=== PATIENT | female | born 1965 | race Caucasian/White ===

== ENCOUNTER 2020-08-01 06:12 | Day surgery (SDC) | payer OTHER ==
[~2020-08-01] VITALS: Ht 175.3 cm; Wt 120.4 kg
[~2020-08-01 06:12] MED LIST: ACULAR5 ML; AMLO5 PO; ATEN100 PO; Aspirin EC81 MG PO; BASAGLAR K100 UNIT/8 SC; CHLO25B PO; LOSARTAN POTAS100 M1 PO; NOVOLOG FL100 UNIT/3 SC; OMEP20ER PO; PRAV20 PO
[2020-08-01] MEDS ORDERED: Cetirizine HCl10 MG PO (06:33)
--- NOTE | 2020-08-01 07:23 | NUR ---
08/01/20 0723 Violet Ni PROCEDURE TO BE RESCHEDULED DUE TO HYPERTENSION. ANESTHESIA STS UNSAFE TO PROCEED WITH BLOOD PRESSURES THAT HIGH. PT VERBALIZES UNDERSTANDING AND STS SHE WILL FOLLOW-UP WITH HER PRIMARY CARE PHYSICIAN. PT OUT AT 0714.
[2020-08-30] MEDS ORDERED: METFORMIN ER1000 M2 PO (08:40)
== END 2020-08-01 07:14 | disposition home or self-care (01) ==
LOC: ORSCSDS 06:12
DX: H25.12 Age-related nuclear cataract, left eye (principal); Z53.9 Procedure and treatment not carried out, unspecified reason
CPT/HCPCS: 82947; A9270; J2001; J3301; J7040

== ENCOUNTER 2020-09-05 08:43 | Day surgery (SDC) | payer OTHER ==
[~2020-09-05] VITALS: Ht 177.8 cm; Wt 119.4 kg
[~2020-09-05 08:43] MED LIST changes: +Cetirizine HCl10 MG PO; +METFORMIN ER1000 M2 PO
--- NOTE | 2020-09-05 08:59 | NUR ---
09/05/20 0859 Madelaine Mcneill CHARTED BY [facility] 0857 TETRACAINE PLACED IN LT EYE PER DR ORDERS. 0858 PLEDGET PLACED IN LT EYE PER DR ORDERS.
--- NOTE | 2020-09-05 10:28 | NUR ---
09/05/20 1028 Shoshana Galaviz USED TETRACAINE ON PATIENT VS LIDOCAINE 1% AND LIDOCAINE 4%. REPORTS SOME ISSUES WITH LIDOCAINES ON PREVIOUS PATIENTS.
== END 2020-09-05 10:59 | disposition home or self-care (01) ==
LOC: ORSCSDS 08:43
PROVIDERS: Ophthalmology
PROC: 08RK3JZ Replacement of Left Lens with Synthetic Substitute, Percutaneous Approach (ICD-10-PCS; principal; 2020-09-05 10:00)
DX: H25.12 Age-related nuclear cataract, left eye (principal); I10 Essential (primary) hypertension; Z87.891 Personal history of nicotine dependence; E11.9 Type 2 diabetes mellitus without complications; E78.00 Pure hypercholesterolemia, unspecified; E66.01 Morbid (severe) obesity due to excess calories; Z68.37 Body mass index [BMI] 37.0-37.9, adult; Z79.82 Long term (current) use of aspirin; Z79.4 Long term (current) use of insulin; Z79.899 Other long term (current) drug therapy
CPT/HCPCS: 82947; A9270; J2001; J2250; J3010; J3301; J7040; V2632